=== PATIENT | female | born 1990 | race Asian ===

== ENCOUNTER 2017-01-19 19:48 | Emergency (ER) | payer OTHER ==
[2017-01-19 20:18] VITALS: BP 106/65; PULSE 146; TEMP 98.2; BMI 27.3
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
[2017-01-19] MEDS ORDERED: predniSONE 20 MG TABLET (UD) PO ONE (22:30)
[2017-01-19] MEDS ORDERED: predniSONE 20 MG TABLET (UD) ONE (22:56)
== END 2017-01-19 23:01 | disposition home or self-care (01) ==
LOC: JER 19:48
DX: O99.89 Other specified diseases and conditions complicating pregnancy, childbirth and the puerperium (principal); H90.42 Sensorineural hearing loss, unilateral, left ear, with unrestricted hearing on the contralateral side; Z3A.32 32 weeks gestation of pregnancy
CPT/HCPCS: 99281-25

== ENCOUNTER 2017-06-10 05:03 | Emergency (ER) | payer OTHER ==
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
--- NOTE | 2017-06-10 06:02 | PDOC ---
History of Present Illness - History of Present Illness Initial Comments: 06/10/17 05:53 Ms. Holden is a 27 yo female with h/o cluster GILLIAM's who presents following seizure. Per Pt. spouse at bedside he states that they were arguing when she stopped and began to stare off into space. This was followed with violent shaking of all her body and all her extremities for 15-20 seconds. This was followed with a brief period of unconsciousness and then 2 more episodes of shaking. Denies hitting head during seizure episode. Denies recent h/o trauma or prior episode of seizures. Currently complains of fatigue, and left sided frontal headache. She Denies recent medication change. Denies bowel/bladder incontinence, or fevers/chills. Has a h/o left sided hearing loss 4 months ago during . Denies alcohol, or illicit drug use. Pt. is agitated on encounter and requests a secondary social studies teacher. <Srinivas Walker - Last Filed: 06/10/17 05:53> <Mel Beck - Last Filed: 06/10/17 06:44> - General Chief Complaint: Seizure Stated Complaint: SEIZURE Time Seen by Provider: 06/10/17 05:21 Past History - Psycho/Social/Smoking Cessation Hx Suicidal Ideation: No Smoking History: Never smoked Hx Alcohol Use: No Drug/Substance Use Hx: No <Srinivas Walker - Last Filed: 06/10/17 05:53> <Mel Beck - Last Filed: 06/10/17 06:44> - Past Medical History Allergies/Adverse Reactions: Allergies Allergy/AdvReac Type Severity Reaction Status Date / Time amoxicillin Allergy Verified 01/19/17 20:19 Home Medications: Ambulatory Orders NK [No Known Home Medication] 06/10/17 Review of Systems - Review of Systems Comments:: 06/10/17 06:02 GENERAL/CONSTITUTIONAL: + Fatigue. No fever or chills. No weakness. HEAD, EYES, EARS, NOSE AND THROAT: No change in vision. No ear pain or discharge. No sore throat. CARDIOVASCULAR: No chest pain or shortness of breath RESPIRATORY: No cough, wheezing, or hemoptysis. GASTROINTESTINAL: No nausea, vomiting, diarrhea or constipation. GENITOURINARY: No dysuria, frequency, or change in urination. MUSCULOSKELETAL: No joint or muscle swelling or pain. No neck or back pain. SKIN: No rash NEUROLOGIC: +headache. No vertigo, loss of consciousness, or change in strength/ sensation. ENDOCRINE: No increased thirst. No abnormal weight change HEMATOLOGIC/LYMPHATIC: No anemia, easy bleeding, or history of blood clots. ALLERGIC/IMMUNOLOGIC: No hives or skin allergy. <Srinivas Walker - Last Filed: 06/10/17 05:53> *Physical Exam - Vital Signs Last Vital Signs Temp Pulse Resp BP Pulse Ox 98.4 F 85 12 114/74 99 06/10/17 05:05 06/10/17 05:05 06/10/17 05:05 06/10/17 05:05 06/10/17 05:05 - Physical Exam Comments: 06/10/17 06:04 GENERAL: Awake, alert, and fully oriented, in no acute distress HEAD: No signs of trauma, normocephalic, atraumatic EYES: PERRLA, EOMI, sclera anicteric, conjunctiva clear ENT: Auricles normal inspection, hearing grossly normal, nares patent, oropharynx clear without exudates. Moist mucosa NECK: Normal ROM, supple, no lymphadenopathy, JVD, or masses LUNGS: No distress, speaks full sentences, clear to auscultation bilaterally HEART: Regular rate and rhythm, normal S1 and S2, no murmurs, rubs or gallops, peripheral pulses normal and equal bilaterally. ABDOMEN: Soft, nontender, normoactive bowel sounds. No guarding, no rebound. No masses EXTREMITIES: Normal inspection, Normal range of motion, no edema. No clubbing or cyanosis. NEUROLOGICAL: Exam limited d/t pt. refusal. Cranial nerves II through XII grossly intact. Normal speech, normal gait, no focal sensorimotor deficits. Normal rapid alternating movements. SKIN: Warm, Dry, normal turgor, no rashes or lesions noted <Srinivas Walker - Last Filed: 06/10/17 05:53> - Vital Signs Last Vital Signs Temp Pulse Resp BP Pulse Ox 98.4 F 85 12 114/74 99 06/10/17 05:05 06/10/17 05:05 06/10/17 05:05 06/10/17 05:05 06/10/17 05:05 <Mel Beck - Last Filed: 06/10/17 06:44> Medical Decision Making - Medical Decision Making 06/10/17 06:06 22 yo F with h/o hearing loss, and cluster GILLIAM's who presents following seizure. She endorses whole body shaking and period of starring of into space prior to seizure. Symptoms consistent with generalized tonic clonic seizure preceded by aura. Seizure threshold could be lowered by infection, drug use, alcohol, or, electrolyte abnormality. Goal of care include r/o mass in young patient with new onset seizure and recent h/o hearing loss. ED Course: 06/10/17 06:11 Ordered B-HCG Ordered Non Contrast Head CT <Srinivas Walker - Last Filed: 06/10/17 05:53> *DC/Admit/Observation/Transfer <Srinivas Walker - Last Filed: 06/10/17 05:53> - Discharge Dispostion Admit: No <Mel Beck - Last Filed: 06/10/17 06:44> Diagnosis at time of Disposition: depression associated with first - Discharge Dispostion Disposition: HOME Condition at time of disposition: Stable - Referrals Referrals: STAFF,NOT ON [Non Staff, Medical] - - Patient Instructions Printed Discharge Instructions: Depression, Women's Health Study Report: Depression
[2017-06-10 06:11] VITALS: BP 114/74; PULSE 85; TEMP 98.4; BMI 23.8
== END 2017-06-10 06:48 | disposition home or self-care (01) ==
LOC: JER 05:03
DX: F53 Mental and behavioral disorders associated with the puerperium, not elsewhere classified (principal)
CPT/HCPCS: 99282-25

== ENCOUNTER 2018-11-20 05:15 | Emergency (ER) | payer OTHER ==
[2018-11-20 05:47] VITALS: BP 118/77; PULSE 101; TEMP 98; BMI 22.8
--- NOTE | 2018-11-20 06:51 | PDOC ---
History of Present Illness - General Chief Complaint: Psychiatric Stated Complaint: RINGING IN LEFT EAR Time Seen by Provider: 11/20/18 06:07 History Source: Patient Exam Limitations: No Limitations - History of Present Illness Initial Comments: 11/20/18 06:44 28 yo female pmh of post depression, tinnitus, right sided hearinh loss and anxiety presents to the ED with tinnitus and anxiety. Pt states she has had tinnitus for over 1 year described as a constant whooshing sound that has become an intermittent beeping noise as of last night that is keeping her from sleeping and is quote "causing me to go crazy." Pt also admits to 2 episodes of NB/NB vomiting yesterday as well as left UE numbness. Of note, pt has been treated by ENT for tinnitus with steroids and has right ear hearing loss. Past History - Past Medical History Allergies/Adverse Reactions: Allergies Allergy/AdvReac Type Severity Reaction Status Date / Time amoxicillin Allergy Verified 11/20/18 06:44 Home Medications: Ambulatory Orders NK [No Known Home Medication] 06/10/17 COPD: No - Suicide/Smoking/Psychosocial Hx Smoking History: Never smoked Have you smoked in the past 12 months: No Information on smoking cessation initiated: No Hx Alcohol Use: No Drug/Substance Use Hx: No Review of Systems - Review of Systems Constitutional: No: Chills, Fever HEENTM: Yes: Tinnitus. No: Blurred Vision, Double Vision Respiratory: No: Shortness of Breath Cardiac (ROS): No: Chest Pain ABD/GI: Yes: Nausea, Vomiting Musculoskeletal: No: Muscle Weakness Neurological: Yes: Numbness, Paresthesia. No: Headache Psychiatric: Yes: Anxiety *Physical Exam - Vital Signs Last Vital Signs Temp Pulse Resp BP Pulse Ox 98.0 F 101 H 20 118/77 98 11/20/18 05:15 11/20/18 05:15 11/20/18 05:15 11/20/18 05:15 11/20/18 05:15 - Physical Exam General Appearance: Yes: Nourished, Appropriately Dressed. No: Apparent Distress HEENT: positive: EOMI, LENORA. negative: TM Bulging, TM Dull, TM Erythema Respiratory/Chest: positive: Lungs Clear, Normal Breath Sounds. negative: Respiratory Distress, Crackles, Rales, Rhonchi, Wheezing Cardiovascular: positive: Regular Rhythm, Regular Rate, S1, S2. negative: Edema , JVD, Murmur Vascular Pulses: Dorsalis-Pedis (R): 4+, Doralis-Pedis (L): 4+ Gastrointestinal/Abdominal: positive: Normal Bowel Sounds, Flat, Soft. negative : Pulsatile Mass, Distended, Guarding, Rebound, Tenderness Extremity: positive: Normal Capillary Refill, Normal Inspection, Normal Range of Motion Integumentary: positive: Normal Color, Dry, Warm Neurologic: positive: decorating supervisor II-XII NML intact, Fully Oriented, Alert, Normal Mood/ Affect, Normal Response, Motor Strength 5/5 Moderate Sedation - Procedure Monitoring Vital Signs: Procedure Monitoring Vital Signs Temperature 98.0 F 11/20/18 05:15 Pulse Rate 101 H 11/20/18 05:15 Respiratory Rate 20 11/20/18 05:15 Blood Pressure 118/77 11/20/18 05:15 O2 Sat by Pulse Oximetry (%) 98 11/20/18 05:15 Medical Decision Making - Medical Decision Making 11/20/18 07:47 28 yo female pmh tinnitus presents to the ED with anxiety and ringing in the ears. Pt states the tinnitus has changed last night from a constant whooshing sound to an intermittent ringing noise that has lead to worsening anxiety and inability to sleep. Denies use of aspirin Vitals WNL NAD AOX3 0.5 Xanax PO ordered Due to sudden change in neurological s/s, basic work up with salicylate levels and a non con head CT ordered. Pt signed out to day team for further care *DC/Admit/Observation/Transfer - Discharge Dispostion Condition at time of disposition: Fair - Referrals - Patient Instructions - Post Discharge Activity
[2018-11-20] MEDS ORDERED: ALPRAZolam 0.25 MG TABLET PO ONE (06:52)
[2018-11-20] MEDS ORDERED: ALPRAZolam 0.25 MG TABLET ONE (06:56)
--- NOTE | 2018-11-20 07:31 | PDOC ---
Attending Attestation - Resident Resident Name: ZuriCanelo - ED Attending Attestation I have performed the following: I have examined & evaluated the patient, The case was reviewed & discussed with the resident, I agree w/resident's findings & plan, Exceptions are as noted - HPI HPI: 11/20/18 07:27 28F pmh anxiety and persistent sensorineural hearing loss for the past 3 years. Pt reports complete loss of R sided hearing acuity and L side with persistent wooshing sound for the last 3 years after her hearing returned. Pt is here today b/c of an acute change in her symptoms. Yesterday, in addition to the wooshing sound, she started experiencing a waxing and waning ringing noise that irritated her to the point of insomnia. She has been unable to sleep and states that her anxiety was triggered by her experience. No other complaints. - Physicial Exam PE: 11/20/18 07:31 GENERAL: Well-appearing, well-nourished. Patient visibly distressed, AOx3 HEENT: Normocephalic, atraumatic. PERRL, EOM intact. CARDIOVASCULAR: Normal S1, S2. Regular rate and rhythm. PULMONARY: Clear to auscultation bilaterally. ABDOMEN: Soft, non-distended, non-tender. EXTREMITIES: Normal ROM in all four extremities. No gross deformities. SKIN: Warm, dry. No rash NEUROLOGICAL: No focal neurological deficits. - Medical Decision Making 11/20/18 07:29 Acute change in her chronic neuro pathology, r/o intracranial pathology, denies any salicylate use F/u labs, salicylate level, ct b re-eval after anti-anxiety rx Dispo per clinical course
[2018-11-20 08:34] LABS: BASO % 0.9 % (0-2.0); EOS % 1.2 % (0-4.5); HEMATOCRIT 37.1 % (32.4-45.2); LYMPH % 23.2 % (8-40); MCH 28.2 pg (25.7-33.7); MCHC 35.1 g/dl (32.0-36.0); MEAN CELL VOLUME 80.4 fl (80-96); MEAN PLT VOLUME 10.9 fl (7.5-11.1); MONO % 6.8 % (3.8-10.2); NEUT % 67.9 % (42.8-82.8); PLATELET COUNT 225 K/MM3 (134-434); RBC 4.61 M/mm3 (3.60-5.2); RDW 14.1 % (11.6-15.6); WHITE BLOOD COUNT 8.4 K/mm3 (4.0-10.0)
[2018-11-20 08:45] LABS: ALBUMIN 3.7 g/dl (3.4-5.0); ALK PHOS 130 U/L (45-117); ANION GAP 7 MMOL/L (8-16); BILIRUBIN,TOTAL 0.3 mg/dL (0.2-1); BLOOD UREA NITROGEN 11 mg/dL (7-18); CALCIUM 8.6 mg/dL (8.5-10.1); CHLORIDE 104 mmol/L (98-107); CO2 25 mmol/L (21-32); CREATININE 0.6 mg/dL (0.55-1.3); GLUCOSE,RANDOM 101 mg/dL (74-106); POTASSIUM 3.9 mmol/L (3.5-5.1); SGOT/AST 49 U/L (15-37); SGPT/ALT 64 U/L (13-61); SODIUM 136 mmol/L (136-145)
--- NOTE | 2018-11-20 09:25 | PDOC ---
*Physical Exam - Vital Signs Last Vital Signs Temp Pulse Resp BP Pulse Ox 98.0 F 101 H 20 118/77 98 11/20/18 05:15 11/20/18 05:15 11/20/18 05:15 11/20/18 05:15 11/20/18 05:15 - Physical Exam General Appearance: Yes: Nourished, Appropriately Dressed. No: Apparent Distress HEENT: positive: EOMI, LENORA, Normal ENT Inspection Neck: positive: Supple Respiratory/Chest: positive: Lungs Clear, Normal Breath Sounds Cardiovascular: positive: Regular Rhythm, Regular Rate, S1, S2 Vascular Pulses: Dorsalis-Pedis (R): 2+, Doralis-Pedis (L): 2+ Gastrointestinal/Abdominal: positive: Normal Bowel Sounds, Soft Rectal Exam: positive: deferred Lymphatic: negative: Adenopathy Musculoskeletal: positive: Normal Inspection. negative: CVA Tenderness Extremity: positive: Normal Capillary Refill, Normal Inspection Integumentary: positive: Normal Color, Dry, Warm Neurologic: positive: floor and wall applier liquid II-XII NML intact, Fully Oriented, Alert, Normal Mood/ Affect, Normal Response ED Treatment Course - LABORATORY CBC & Chemistry Diagram: 11/20/18 07:30 11/20/18 06:51 - ADDITIONAL ORDERS Additional order review: Laboratory Results 11/20/18 11/20/18 11/20/18 07:45 07:30 06:51 Sodium 136 Potassium 3.9 Chloride 104 Carbon Dioxide 25 Anion Gap 7 L BUN 11 Creatinine 0.6 Creat Clearance w eGFR > 60 Random Glucose 101 Calcium 8.6 Total Bilirubin 0.3 AST 49 H ALT 64 H Alkaline Phosphatase 130 H Total Protein 7.0 Albumin 3.7 Serum , Qual Negative Urine HCG, Qual Salicylates < 1.7 L 11/20/18 07:30 RBC 4.61 MCV 80.4 MCHC 35.1 RDW 14.1 MPV 10.9 Neutrophils % 67.9 Lymphocytes % 23.2 Monocytes % 6.8 Eosinophils % 1.2 Basophils % 0.9 - RADIOLOGY Radiology Studies Ordered: Category Date Time Status HEAD CT WITHOUT CONTRAST [CT] Stat CT Scan 11/20/18 08:49 Completed - Medications Given in the ED: ED Medications Discontinued Medications Generic Name Dose Route Start Last Admin Trade Name Freq PRN Reason Stop Dose Admin Alprazolam 0.5 mg 11/20/18 06:52 11/20/18 06:59 Xanax - PO 11/20/18 06:53 0.5 mg ONCE ONE Administration Medical Decision Making - Medical Decision Making Patient signed out to me from night team. 28 yo female pmh of post depression, tinnitus, right sided hearinh loss and anxiety presents to the ED with tinnitus and anxiety. Labs WNL and unremarkable Head CT WNL Patient feels well and would like to go home. Will DC with PCP and Neuro FU. *DC/Admit/Observation/Transfer Diagnosis at time of Disposition: Tinnitus - Discharge Dispostion Disposition: HOME Condition at time of disposition: Fair Decision to Admit order: No - Referrals Referrals: Dandre Esparza MD [Staff Physician] - - Patient Instructions Printed Discharge Instructions: Tinnitus Aurium (Alternative Therapy), Ringing in the Ears Additional Instructions: You came into the ER with ringing in your ears. We looked at your bloodwork, urine, and did a CT of your head which were all normal. It is important to follow up with an ENT doctor to figure out what is the cause of your ear ringing. Please come back to the Er if you get a bad headache, are dizzy, or have any other new or worsening concerns. Thank you for coming to the [facility] ER. We hope you feel better soon! Print Language: GREEK - Post Discharge Activity
[2018-11-20 10:40] LABS: URINE APPEARANCE CLOUDY; URINE BILIRUBIN NEGATIVE (<2.0 mg/dL); URINE COLOR YELLOW; URINE GLUCOSE (UA) NEGATIVE (NEGATIVE); URINE KETONE TRACE (NEGATIVE); URINE LEUK ESTERASE NEGATIVE (NEGATIVE); URINE NITRITE NEGATIVE (NEGATIVE); URINE PROTEIN 1+ (NEGATIVE); URINE UROBILINOGEN NEGATIVE mg/dL (0.2-1.0)
[2018-11-20 10:50] LABS: CALCIUM OXALATE CRYSTALS MANY /hpf (NONE SEEN); EPI CELLS FEW /HPF (FEW)
== END 2018-11-20 10:39 | disposition home or self-care (01) ==
LOC: JER 05:15
DX: H93.12 Tinnitus, left ear (principal); H90.5 Unspecified sensorineural hearing loss; Z87.59 Personal history of other complications of pregnancy, childbirth and the puerperium; Z86.59 Personal history of other mental and behavioral disorders
CPT/HCPCS: 36415; 70450-TC; 80053; 80307; 81003; 81015; 84703; 85025; 99282-25

== ENCOUNTER 2018-12-05 04:18 | Emergency (ER) | payer OTHER ==
[2018-12-05] MEDS ORDERED: ALPRAZolam 0.25 MG TABLET PO ONE (05:04)
[2018-12-05] MEDS ORDERED: ALPRAZolam 0.25 MG TABLET ONE (05:10)
--- NOTE | 2018-12-05 05:11 | PDOC ---
History of Present Illness - General Chief Complaint: Psychiatric Stated Complaint: PANIC ATTACK Time Seen by Provider: 12/05/18 04:47 History Source: Patient Exam Limitations: No Limitations - History of Present Illness Initial Comments: 12/05/18 05:06 Patient is a 28F with no significant medical history here today complaining about anxiety. Patient states for the past 3-4 weeks she has been having increasing issues with anxiety. She states that she is constantly worried about many things including taking care of her baby. She was seen and evaluated in the ED 2 weeks ago where she was diagnosed with anxiety and discharged with 4 xanax pills, which lasted two weeks. She reports going to her PCP twice and was just given a zoloft prescription and is hoping to start it tomorrow. It has been delayed a day due to insurance issue. Patient states that she has been attempting to contact many psychiatrists, but has not been to be seen yet. Denies SI/HI. Denies hallucinations. Denies history of suicide attempts and hospitalizations. Past History - Past Medical History Allergies/Adverse Reactions: Allergies Allergy/AdvReac Type Severity Reaction Status Date / Time amoxicillin Allergy Verified 12/05/18 04:35 Home Medications: Ambulatory Orders Alprazolam [Xanax] 0.25 mg PO BID PRN #4 tablet MDD 2 11/20/18 Alprazolam [Xanax] 0.25 mg PO BID #4 tablet MDD 2 12/05/18 COPD: No - Suicide/Smoking/Psychosocial Hx Smoking History: Never smoked Have you smoked in the past 12 months: No Information on smoking cessation initiated: No Hx Alcohol Use: No Drug/Substance Use Hx: No Review of Systems - Review of Systems Comments:: 12/05/18 05:10 GENERAL/CONSTITUTIONAL: No fever or chills. No weakness. HEAD, EYES, EARS, NOSE AND THROAT: No change in vision. No sore throat. CARDIOVASCULAR: No chest pain +shortness of breath RESPIRATORY: No cough, wheezing, or hemoptysis. GASTROINTESTINAL: No nausea, vomiting, diarrhea or constipation. GENITOURINARY: No dysuria, frequency, or change in urination. MUSCULOSKELETAL: No joint or muscle swelling or pain. No neck or back pain. SKIN: No rash NEUROLOGIC: No headache, vertigo, loss of consciousness, or change in strength/ sensation. *Physical Exam - Vital Signs Last Vital Signs Temp Pulse Resp BP Pulse Ox 97.8 F 85 18 124/79 98 12/05/18 04:18 12/05/18 04:18 12/05/18 04:18 12/05/18 04:18 12/05/18 04:18 - Physical Exam Comments: 12/05/18 05:11 GENERAL: Awake, alert, and fully oriented, tearful PSYCHIATRIC: Denies SI/HI, describes mood as worried, affect congruent, patient is not manipulative, is goal oriented and working to take care of her anxiety. No signs of responding to internal stimuli. HEAD: No signs of trauma, normocephalic, atraumatic EYES: PERRLA, EOMI, sclera anicteric, conjunctiva clear ENT: Auricles normal inspection, hearing grossly normal, nares patent, oropharynx clear without exudates. Moist mucosa NECK: Normal ROM, supple, no lymphadenopathy, JVD, or masses LUNGS: No distress, speaks full sentences, clear to auscultation bilaterally HEART: Regular rate and rhythm, normal S1 and S2, no murmurs, rubs or gallops, peripheral pulses normal and equal bilaterally. ABDOMEN: Soft, nontender, normoactive bowel sounds. No guarding, no rebound. No masses EXTREMITIES: Normal inspection, Normal range of motion, no edema. No clubbing or cyanosis. NEUROLOGICAL: Cranial nerves II through XII grossly intact. Normal speech, normal gait, no focal sensorimotor deficits SKIN: Warm, Dry, normal turgor, no rashes or lesions noted. Moderate Sedation - Procedure Monitoring Vital Signs: Procedure Monitoring Vital Signs Temperature 97.8 F 12/05/18 04:18 Pulse Rate 85 12/05/18 04:18 Respiratory Rate 18 12/05/18 04:18 Blood Pressure 124/79 12/05/18 04:18 O2 Sat by Pulse Oximetry (%) 98 12/05/18 04:18 Medical Decision Making - Medical Decision Making 12/05/18 05:12 Patient is 28F here today with anxiety. Vitals normal and stable. Patient attempting to take care of anxiety through preventative means. Will treat with xanax 0.25mg here. 4 0.25mg pills effective for two weeks. Will use more to attempt to bridge through start of SSRI effectiveness. Patient not suicidal, has pcp follow up. 12/05/18 05:27 Patient reassessed, discussed possible plans. Patient concludes that she is going to [facility] and stay with her mom in [place]. *DC/Admit/Observation/Transfer Diagnosis at time of Disposition: Anxiety - Discharge Dispostion Disposition: HOME Condition at time of disposition: Good Decision to Admit order: No - Prescriptions Prescriptions: Alprazolam [Xanax] 0.25 mg PO BID #4 tablet MDD 2 - Referrals Referrals: Cris Diamond MD [Staff Physician] - - Patient Instructions Printed Discharge Instructions: DI for Anxiety -- Adult Additional Instructions: Please continue to follow up with your primary care physician. A referral for a psychiatrist is below, but please feel free to follow up with the psychiatrist program in [place]. - Post Discharge Activity
[2018-12-05 05:25] VITALS: BP 124/79; PULSE 85; TEMP 97.8; BMI 24.5
--- NOTE | 2018-12-05 05:49 | PDOC ---
Attending Attestation - Resident Resident Name: Joshua Raya - ED Attending Attestation I have performed the following: I have examined & evaluated the patient, The case was reviewed & discussed with the resident, I agree w/resident's findings & plan, Exceptions are as noted - HPI HPI: 12/05/18 06:28 28F PMH hearing loss here c/o anxiety. She has been having worsening symptoms over the past several weeks. She was seen here recently and worked up for a change in her neurologic symptoms, was cleared of any organic pathology. Her anxiety was treated and she was discharged with Rx for anxiety and appropriately followed up with her PCP. She was unable to expeditiously fill her prescription and her symptoms recurred. - Physicial Exam PE: 12/05/18 06:30 Agree with exam as documented by resident - Medical Decision Making 12/05/18 06:30 Recurrence of her anxiety, no other complaints, no SI, HI tx symptoms rx dc, follow up options and [facility] plan discussed. Documented in resident note
== END 2018-12-05 05:41 | disposition home or self-care (01) ==
LOC: JER 04:18
DX: F41.9 Anxiety disorder, unspecified (principal)
CPT/HCPCS: 99282-25

== ENCOUNTER 2019-11-05 16:51 | Emergency (ER) | payer OTHER ==
[2019-11-05 17:22] VITALS: BP 100/65; PULSE 104; TEMP 98.6; BMI 24.7
[2019-11-05] MEDS ORDERED: SODIUM CHLORIDE 1,000 ML IV STA (18:06)
[2019-11-05] MEDS ORDERED: ONDANSETRON 4 MG/2 ML VIAL IVPUSH ONE (18:06)
[2019-11-05] MEDS ORDERED: ACETAMINOPHEN 1000 MG/100 ML VIAL (NON FORMULARY) IVPB ONE (18:15)
--- NOTE | 2019-11-05 18:15 | PDOC ---
History of Present Illness - General Chief Complaint: Pain Stated Complaint: FEVER Time Seen by Provider: 11/05/19 17:43 History Source: Patient Exam Limitations: No Limitations - History of Present Illness Initial Comments: 11/05/19 18:08 HISTORY OF PRESENT ILLNESS: 29-year-old woman past medical history of depression presents to the emergency department for evaluation of 1 day of chills, body aches worse in the lower legs, dry nonproductive cough, nasal congestion. Patient reports she woke up this morning prepare breakfast for her family immediately after finishing the breakfast she sat down to rest and tripped falling asleep for multiple hours. Patient reports while she did eat she had no appetite this morning and reports having altered taste- water tastes like "spoiled onions." Patient reports having some nausea with vomiting but did not inspect her vomit. She denies any dysuria, hematuria, rectal bleeding, constipation or diarrhea. No recent travel or sick contacts. PAST MEDICAL HISTORY: See HPI SURGICAL HISTORY: Denies ALLERGIES: Penicillin REVIEW OF SYSTEMS General/Constitutional: +fever. Denies weakness, weight change. HEENT: Denies change in vision. Denies ear pain or discharge. +sore throat. Cardiovascular: Denies chest pain or shortness of breath. Respiratory: Dry unproductive cough. Denies wheezing, or hemoptysis. Gastrointestinal: Denies nausea, vomiting, diarrhea or constipation. Denies rectal bleeding. Genitourinary: Denies dysuria, frequency, or change in urination. Musculoskeletal: +myalgias. Denies neck or back pain. Skin and breasts: Denies rash or easy bruising. Neurologic: Denies headache, vertigo, loss of consciousness, or loss of sensation. Psychiatric: Denies depression or anxiety. Endocrine: Denies increased thirst. Denies abnormal weight change. Hematologic/Lymphatic: Denies anemia, easy bleeding, or history of blood clots. Allergic/Immunologic: Denies hives or skin allergy. Denies latex allergy. PHYSICAL EXAM General Appearance: Well-appearing, appropriately dressed. No apparent distress , no intoxication. HEENT: EOMI, PERRLA, normal voice, TMs retracted bilaterally. No conjunctival pallor. No photophobia, scleral icterus. Oropharynx erythematous without lesions or exudate. Cobblestoning noted in the posterior. No nasal discharge present. Neck: Supple. Trachea midline. No tenderness, rigidity, carotid bruit, stridor , or thyromegaly. Nontender anterior cervical lymphadenopathy present. Respiratory/Chest: Lungs CTAB. No shortness of breath, chest tenderness, respiratory distress, accessory muscle use. No crackles, rales, rhonchi, stridor , wheezing, dullness Cardiovascular: RRR. S1, S2. No JVD, murmur, bradycardia, tachycardia. Vascular Pulses: Dorsalis-Pedis (R): 2+, Dorsalis-Pedis (L): 2+ Gastrointestinal/Abdominal: Normal bowel sounds. Abdomen soft, non-distended. No tenderness or rebound tenderness. No organomegaly, pulsatile mass, guarding, hernia, hepatomegaly, splenomegaly. Musculoskeletal/Extremities: Normal inspection. FROM of all extremities, normal capillary refill. Pelvis Stable. No CVA tenderness. No tenderness to extremities, pedal edema, swelling, erythema or deformity. Negative Homans sign bilaterally. Integumentary: Appropriate color, dry, warm. No cyanosis, erythema, jaundice or rash Neurologic: control supervisor II-XII intact. Fully oriented, alert. Appropriate mood/affect. Motor strength 5/5. No appreciable EOM palsy, facial droop or sensory deficit. Past History - Past Medical History Allergies/Adverse Reactions: Allergies Allergy/AdvReac Type Severity Reaction Status Date / Time amoxicillin Allergy Verified 12/05/18 04:35 Home Medications: Ambulatory Orders Ondansetron [Zofran *Odt*] 4 mg SL TID PRN #21 od.tablet 11/05/19 COPD: No Psychiatric Problems: (panic attack) - Immunization History Td Vaccination: Yes TDAP Vaccination: Yes Immunization Up to Date: Yes - Psycho Social/Smoking Cessation Hx Smoking History: Never smoked Have you smoked in the past 12 months: No Hx Alcohol Use: No Drug/Substance Use Hx: No *Physical Exam - Vital Signs Last Vital Signs Temp Pulse Resp BP Pulse Ox 98.6 F 104 H 16 100/65 100 11/05/19 17:18 11/05/19 17:18 11/05/19 17:18 11/05/19 17:18 11/05/19 17:18 ED Treatment Course - LABORATORY CBC & Chemistry Diagram: 11/05/19 18:11 11/05/19 18:11 Medical Decision Making - Medical Decision Making 11/05/19 18:23 A/P: 29-year-old woman with flulike symptoms starting this morning Most likely influenza B given accompanying symptoms. Nausea and vomiting cannot rule out infectious etiology of the abdomen on exam. Less likely perforation, obstruction, cholecystitis, pancreatitis, ischemia given benign abdominal exam. CBC, CMP, lipase, urinalysis, urine culture, influenza testing Normal saline 1 L IV bolus Zofran 4 mg IV push Tylenol 1 g IV Reassess 11/05/19 19:28 Laboratory Tests 11/05/19 11/05/19 11/05/19 18:11 18:11 18:11 WBC 9.9 RBC 5.11 Hgb 13.6 Hct 40.3 MCV 79.0 L MCH 26.6 MCHC 33.7 RDW 14.2 Plt Count 200 MPV 9.9 Absolute Neuts (auto) 9.0 H Neutrophils % 90.5 H Lymphocytes % 4.9 L D Monocytes % 4.0 Eosinophils % 0.4 Basophils % 0.2 Nucleated RBC % 0 Sodium 136 Potassium 3.9 Chloride 106 Carbon Dioxide 22 BUN 11.4 Creatinine 0.7 Est GFR (CKD-EPI)AfAm 135.70 Est GFR (CKD-EPI)NonAf 117.08 Random Glucose 95 Calcium 8.7 Total Bilirubin 1.0 AST 21 ALT 50 Alkaline Phosphatase 103 Total Protein 7.6 Albumin 4.0 Lipase 114 Urine Color Yellow Urine Appearance Clear Urine pH 8.5 H D Ur Specific [place] 1.024 Urine Protein Negative Urine Glucose (UA) Negative Urine Ketones 1+ H Urine Blood Negative Urine Nitrite Negative Urine Bilirubin Negative Urine Urobilinogen 0.2 Ur Leukocyte Esterase Trace Urine WBC (Auto) 2 Urine Casts (Auto) 1 U Epithel Cells (Auto) 2.3 Urine Bacteria (Auto) 60.4 Urine HCG, Qual Influenza A (Rapid) Influenza B (Rapid) 11/05/19 11/05/19 18:11 18:11 WBC RBC Hgb Hct MCV MCH MCHC RDW Plt Count MPV Absolute Neuts (auto) Neutrophils % Lymphocytes % Monocytes % Eosinophils % Basophils % Nucleated RBC % Sodium Potassium Chloride Carbon Dioxide BUN Creatinine Est GFR (CKD-EPI)AfAm Est GFR (CKD-EPI)NonAf Random Glucose Calcium Total Bilirubin AST ALT Alkaline Phosphatase Total Protein Albumin Lipase Urine Color Urine Appearance Urine pH Ur Specific [place] Urine Protein Urine Glucose (UA) Urine Ketones Urine Blood Urine Nitrite Urine Bilirubin Urine Urobilinogen Ur Leukocyte Esterase Urine WBC (Auto) Urine Casts (Auto) U Epithel Cells (Auto) Urine Bacteria (Auto) Urine HCG, Qual Negative Influenza A (Rapid) Negative Influenza B (Rapid) Negative O patient does have left shift white count is within normal limits. Otherwise unremarkable. Influenza testing is negative Patient reports improvement in all symptoms after receiving 500 cc normal saline , IV Tylenol and IV Zofran. Allow patient to receive the remainder of her IV fluids and reevaluate at that time. Patient continues to have a benign abdominal exam. 11/05/19 20:07 Patient symptoms have improved. Likely a systemic viral infection other than influenza. I will discharge patient home with prescription for Zofran and instructions to take [id number] medicines for symptomatic treatment. I discussed the physical exam findings, ancillary test results and final diagnoses with the patient. I answered all of the patient's questions. The patient was satisfied with the care received and felt comfortable with the discharge plan and treatment plan. The patient will call their primary care physician within 24 hours to arrange follow-up and will return to the Emergency Department with any new, persistent or worsening symptoms. Discharge - Discharge Information Problems reviewed: Yes Clinical Impression/Diagnosis: Systemic viral illness Condition: Fair Disposition: HOME - Admission No - Additional Discharge Information Prescriptions: Ondansetron [Zofran *Odt*] 4 mg SL TID PRN #21 od.tablet PRN Reason: Nausea - Follow up/Referral - Patient Discharge Instructions Additional Instructions: Rest, drink lots of fluids: Teas, water, soups Amber gemma, carbonated beverages for the bubbles May try peppermint teas Avoid heavy , spicy or fatty foods until symptoms have resolved Avoid contact with others until fevers and symptoms resolved Lots of handwashing and good hygiene Continue [id number] medications for symptomatic relief Tylenol or Motrin for fever and pain May use Zofran-one tablet dissolved on tongue as needed for nauseousness. May repeat times one every 8 hours Followup with private physician in one to 2 days as needed Return to emergency department for worsened symptoms, fevers, dehydration - Post Discharge Activity
[2019-11-05] MEDS ORDERED: ACETAMINOPHEN INJECTION 100 ML IVPB ONE (18:31)
[2019-11-05] MEDS ORDERED: ONDANSETRON 4 MG/2 ML VIAL ONE (18:31)
[2019-11-05 18:41] LABS: BASO % 0.2 % (0-2.0); EOS % 0.4 % (0-4.5); HEMATOCRIT 40.3 % (32.4-45.2); HEMOGLOBIN 13.6 GM/dL (10.7-15.3); LYMPH % 4.9 % (8-40); MCH 26.6 pg (25.7-33.7); MCHC 33.7 g/dl (32.0-36.0); MEAN PLT VOLUME 9.9 fl (7.5-11.1); NEUT % 90.5 % (42.8-82.8); PLATELET COUNT 200 K/MM3 (134-434); RBC 5.11 M/mm3 (3.60-5.2); RDW 14.2 % (11.6-15.6); WHITE BLOOD COUNT 9.9 K/mm3 (4.0-10.0)
[2019-11-05 19:03] LABS: EPI CELLS 2.3 /HPF (0-5/HPF); HYALINE CASTS 1 /lpf (0-8); PH,URINE 8.5 (5.0-8.0); URINE APPEARANCE CLEAR; URINE BACTERIA 60.4 /hpf (NEGATIVE); URINE BILIRUBIN NEGATIVE (NEGATIVE); URINE COLOR YELLOW; URINE GLUCOSE (UA) NEGATIVE (NEGATIVE); URINE KETONE 1+ (NEGATIVE); URINE LEUK ESTERASE TRACE (NEGATIVE); URINE NITRITE NEGATIVE (NEGATIVE); URINE PROTEIN NEGATIVE (NEGATIVE); URINE UROBILINOGEN 0.2 mg/dL (0.2-1.0); URINE WBC 2 /hpf (0-5)
[2019-11-05 19:12] LABS: BLOOD UREA NITROGEN 11.4 mg/dL (7-18); CALCIUM 8.7 mg/dL (8.5-10.1); CREATININE 0.7 mg/dL (0.55-1.3); POTASSIUM 3.9 mmol/L (3.5-5.1); TOT PROT 7.6 g/dl (6.4-8.2)
== END 2019-11-05 20:36 | disposition home or self-care (01) ==
LOC: JER 16:51
PROC: 3E033NZ Introduction of Analgesics, Hypnotics, Sedatives into Peripheral Vein, Percutaneous Approach (ICD-10-PCS; principal; 2019-11-05)
PROC: 3E033GC Introduction of Other Therapeutic Substance into Peripheral Vein, Percutaneous Approach (ICD-10-PCS; 2019-11-05)
DX: B34.9 Viral infection, unspecified (principal); F41.0 Panic disorder [episodic paroxysmal anxiety]
CPT/HCPCS: 36415; 80053; 81003; 83690; 84703; 85025; 87086; 87804; 99281-25; J0131; J7030